=== PATIENT | female | born 1950 | race Caucasian/White ===

== ENCOUNTER 2023-01-09 12:06 | Outpatient (CLI) | payer MEDICARE, SELFPAY | END 2023-01-09 12:07 | disposition home or self-care (01) | LOC: AMB 01-22 02:43 | PROVIDERS: Visit Provider Family Medicine | DX: S80.211A Abrasion, right knee, initial encounter (principal); S50.311A Abrasion of right elbow, initial encounter; W19.XXXA Unspecified fall, initial encounter; Y92.89 Other specified places as the place of occurrence of the external cause | CPT/HCPCS: A0998 ==

== ENCOUNTER 2023-01-09 12:46 | Emergency (ER) | payer MEDICARE, SELFPAY ==
[2023-01-09] VITALS (16 sets, daily range): BP systolic 113–146; BP diastolic 63–77; PULSE 50–69; RESP 18; TEMP 36.3; O2SAT 91–100; BMI 20.4
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
--- NOTE | 2023-01-09 13:03 | CRLHL7_ITS ---
For Patients: As a result of the Century Cures Act, medical imaging exams and procedure reports are released immediately into your electronic medical record. You may view this report before your referring provider. If you have questions, please contact your health care provider. INDICATION: Syncope. TECHNIQUE: Chest 1 views. COMPARISON: None. FINDINGS: Cardiovascular and mediastinum: Cardiomediastinal silhouette is within normal limits. Lungs and pleural spaces: Lungs are clear. No sign of pleural effusion. No pneumothorax. Bones and soft tissues: Mild scoliosis of the spine. Otherwise unremarkable for age.. IMPRESSION: No acute cardiopulmonary process identified. Dictated by Jaren Lee MD @ 01/09/2023 2:13:05 PM (Electronically Signed)
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
[2023-01-09 13:29] LABS: Appearance Urine Clear (Clear); Bilirubin Urine 1+ (Negative); Blood Urine Trace-intact (Negative); Color Urine Yellow (Yellow); Glucose Urine Negative (Negative); Ketones Urine 1+ (Negative); Leukocyte Esterase Urine Negative (Negative); Nitrite Urine Negative (Negative); Protein Urine 2+ (Negative); Specific Gravity Urine 1.025 (1.000-1.030)
[2023-01-09 13:34] LABS: Basophils Absolute Auto 0.03 K/uL (0.00-0.30); Basophils Percent Auto 0.4 % (0.0-3.0); Eosinophils Percent Auto 1.2 % (0.0-7.0); Hematocrit 38.3 % (33.0-51.0); Hemoglobin* 12.7 gm/dL (12.0-16.0); Immature Granulocytes Abs Auto 0.03 K/uL (0.00-0.30); Immature Granulocytes Pct Auto 0.4 %; Lymphocytes Absolute Auto 1.81 K/uL (0.90-2.90); Lymphocytes Percent Auto 21.2 % (20-44); Mean Corpuscular HGB Conc 33 gm/dL (32-36); Mean Corpuscular Hemoglobin 28 pg (26-34); Mean Corpuscular Volume 86 fL (80-100); Monocytes Percent Auto 5.6 % (0.0-11.0); Neutrophils Absolute Auto 6.09 K/uL (1.7-7.0); Neutrophils Percent Auto 71.2 % (42.0-72.0); Platelet Count* 259 K/uL (140-440); RDW Coefficient of Variation % 13.1 % (11.5-15.5); Red Blood Count 4.47 m/uL (4.00-5.20); White Blood Count* 8.54 K/uL (4.50-11.00)
[2023-01-09 13:36] LABS: Slide Review Reflex No
[2023-01-09 13:42] LABS: RBC Urine 0-2 (0-2)
[2023-01-09 13:43] LABS: Bacteria Urine Few; Squamous Epithelial Cell Urine Few (None-Few); WBC Urine 0-2 (0-5)
[2023-01-09 13:54] LABS: Chloride* 104 mmol/L (96-114)
[2023-01-09 13:55] LABS: Potassium* 3.8 mmol/L (3.6-5.1); Sodium* 139 mmol/L (135-149)
[2023-01-09 13:57] LABS: Creatinine* 1.2 mg/dL (0.5-1.5); Est. Creatinine Clearance* 40.61; Estimated Glomerular Filt Rate 49 ml/min
[2023-01-09 13:58] LABS: Blood Urea Nitrogen* 24 mg/dL (7-30); Carbon Dioxide* 28 mmol/L (20-32); Glucose* 111 mg/dL (60-115)
--- NOTE | 2023-01-09 14:01 | ED.NURSE ---
Patient with abrasion to right elbow. This was cleansed with saline and left open to air. Right knee with small skin tear. Cleansed with saline, applied dry gauze and covered with tegaderm. Some bruising noted under right eye.
[2023-01-09] MEDS: 0.9 % SODIUM CHLORIDE 1000 ml 1,000 ML IV (14:53)
== END 2023-01-09 16:06 | disposition home or self-care (01) ==
PROVIDERS: Emergency Provider Family Medicine
DX: R00.1 Bradycardia, unspecified (principal); S09.90XA Unspecified injury of head, initial encounter; E04.1 Nontoxic single thyroid nodule; R55 Syncope and collapse; V18.0XXA Pedal cycle driver injured in noncollision transport accident in nontraffic accident, initial encounter
CPT/HCPCS: 36415; 70450; 71045; 72125; 80048; 81001; 84443; 84484; 85025; 87086; 93005; 96360; 99285; 99291; J7030